=== PATIENT | male | born 1990 | race Caucasian/White ===

== ENCOUNTER → 2020-09-16 | Outpatient (CLI) | payer OTHER | LOC: MHCPAIN 14:52 | DX: M47.814 Spondylosis without myelopathy or radiculopathy, thoracic region (principal); M41.25 Other idiopathic scoliosis, thoracolumbar region; M79.18 Myalgia, other site; G89.29 Other chronic pain | CPT/HCPCS: G0463 ==

== ENCOUNTER → 2020-09-22 | Outpatient (CLI) | payer OTHER | LOC: MHCPAIN 10:29 | DX: M79.18 Myalgia, other site (principal); M54.6 Pain in thoracic spine | CPT/HCPCS: J1040 ==

== ENCOUNTER → 2021-03-30 | Outpatient (CLI) | payer OTHER | LOC: MHCPAIN 09:47 | DX: M79.18 Myalgia, other site (principal); M54.6 Pain in thoracic spine; M41.85 Other forms of scoliosis, thoracolumbar region; G89.29 Other chronic pain | CPT/HCPCS: G0463 ==

== ENCOUNTER → 2021-04-07 | Outpatient (CLI) | payer OTHER | LOC: MHCPAIN 08:11 | DX: M54.6 Pain in thoracic spine (principal); M79.18 Myalgia, other site; M54.2 Cervicalgia | CPT/HCPCS: J1040 ==

== ENCOUNTER → 2021-09-28 | Outpatient (CLI) | payer OTHER | LOC: MHCPAIN 09:20 | DX: M79.18 Myalgia, other site (principal); M54.6 Pain in thoracic spine; M41.25 Other idiopathic scoliosis, thoracolumbar region | CPT/HCPCS: G0463; J1040 ==

== ENCOUNTER → 2022-01-24 | Outpatient (CLI) | payer OTHER | LOC: MHCPAIN 09:16 | DX: M41.85 Other forms of scoliosis, thoracolumbar region (principal); M79.18 Myalgia, other site | CPT/HCPCS: G0463 ==